=== PATIENT | female | born 1945 | race Two or more races ===

== ENCOUNTER 2019-09-27 06:03 | Day surgery (SDC) | payer OTHER ==
[2019-09-25 14:09] VITALS: BMI 34.2
[~2019-09-27 06:03] MED LIST: TOBRAMYCIN/DEXAMETHASONE OPHTH. OINTMENT 1 TUBE TP ONE
[2019-09-27] MEDS ORDERED: TROPICAMIDE 1% OPHTH SOLN 15 ML BOTTLE ONE (06:26)
[2019-09-27] MEDS: PHENYLEPHRINE 2.5% OPHTH SOLN 15 ML BOTTLE OP SCH ×3 (06:30→06:55)
[2019-09-27] MEDS: TROPICAMIDE 1% OPHTH SOLN 15 ML BOTTLE OP SCH ×3 (06:30→06:55)
[2019-09-27] MEDS: KETOROLAC TROMETHAMINE 0.5% EYE DROP 1 DROP DROPS OP SCH ×3 (06:30→06:50)
[2019-09-27] MEDS: CIPROFLOXACIN HCL 0.3% OPHTH 2.5ML BOTTLE OP SCH ×3 (06:30→06:50)
[2019-09-27] MEDS ORDERED: ACETAMINOPHEN 325 MG TABLET (FP) PO PRN (06:45)
[2019-09-27] MEDS ORDERED: CHONDROITIN SU A/HYALUR SOD 1 KIT ONE (07:11)
[2019-09-27] MEDS ORDERED: EPINEPHrine/PF 1 MG/1 ML (1:1,000) AMPULE ONE (07:12)
[2019-09-27] MEDS ORDERED: TOBRAMYCIN/DEXAMETHASONE OPHTH. OINTMENT 1 TUBE ONE (07:12)
[2019-09-27] MEDS ORDERED: LIDOCAINE HCL/PF 1% SDV 5ML VIAL ONE (07:13)
[2019-09-27] MEDS ORDERED: BUPIVACAINE HCL/PF 0.75% 10 ML VIAL ONE (07:13)
[2019-09-27] MEDS ORDERED: TETRACAINE 0.5% OPHTH SOLN 2 ML BOTTLE ONE (07:13)
[2019-09-27] MEDS ORDERED: LIDOCAINE HCL/PF 2% SDV 5ML VIAL ONE (07:13)
[2019-09-27] MEDS ORDERED: POVIDONE-IODINE 5% OPHTHALMIC PREP 30 ML SOLUTION ONE (07:14)
--- NOTE | 2019-09-27 07:19 | HP ---
- Patient Scheduled date of Surgery: 09/27/19 Scheduled Surgical Procedure: Phacoemulsification and cataract extraction with PCIOL Affected Eye: Left Chief Complaint (Indication for surgery): Decreased vision affecting ADLs - Ocular History Other Eye History: Other (eyelid nevus, PASQUALE) Eye Medications: vigamox, restasis , at Previous Eye Surgery: none - Medical History Illnesses: Hypertension, Hypercholesterolemia, Dementia (mild), Thyroid Disease Current Medications: Ambulatory Orders Citalopram Hydrobromide [Citalopram HBr] 10 mg PO DAILY 09/25/19 Metoprolol Succinate 25 mg PO DAILY 09/25/19 Fenofibrate Nanocrystallized [Fenofibrate] 160 mg PO DAILY 09/27/19 Levothyroxine [Synthroid -] 25 mcg PO DAILY 09/27/19 Lisinopril [Prinivil -] 40 mg PO DAILY 09/27/19 Memantine HCl/Donepezil HCl [Namzaric 28 mg-10 mg Capsule] 1 each PO DAILY 09/27 Quetiapine Fumarate [Seroquel -] 25 mg PO HS 09/27/19 Simvastatin 40 mg PO DAILY 09/27/19 Allergies/Adverse Reactions: Allergies Allergy/AdvReac Type Severity Reaction Status Date / Time No Known Allergies Allergy Verified 09/27/19 06:33 Ocular Examination - Best Corrected Visual Acuity Distance: Right eye: 20/60 glare Distance: Left eye: 20/40 - External/Slit Lamp Examination Abnormalities: decreased tbut, pingueculum - Intraocular Pressure Intraocular Pressure - Right eye: 14 Intraocular Pressure-Left eye: 14 - Lens Lens: 2+ NS - Vitreous/Retina Vitreous/Retina: c:d 0.15 m/v/p wnl - Special Examination M - Right eye: +1.50-0.50 x 105 M - Left eye: +2.25-0.75 x 075 K - Right eye: 43.5/44 x050 K - Left eye: 43.25/43.75 x 75 AL - Right eye: 23.60 AL - Left eye: 23.47 IOL ba.0 IOL sulcus: 20.0 IOL AC: 17.5 - Impression Impression: Cataract Left Eye - Plan Plan: Phacoemulsification and cataract extraction - IOL Left eye Post-hospital care will be provided in office on: 09/28/19
--- NOTE | 2019-09-27 07:20 | HP ---
History & Physical Update - History History: No Change - Physical Physical: No Change - Assessment Assessment: No Change - Plan Plan: No Change (H and p reviewed by Dr. Mclaughlin from 09/05/19 no changes)
[2019-09-27] MEDS ORDERED: PROPOFOL 20 ML ONE ×2 (07:29)
[2019-09-27] MEDS ORDERED: MIDAZOLAM HCL 2 MG/2 ML SINGLE DOSE VIAL ONE (07:29)
[2019-09-27] MEDS ORDERED: BUPIVACAINE HCL/PF 0.75% 10 ML VIAL NR ONE (07:51)
[2019-09-27] MEDS ORDERED: LIDOCAINE HCL/PF 2% SDV 5ML VIAL INF ONE ×2 (07:51)
[2019-09-27] MEDS ORDERED: TETRACAINE 0.5% OPHTH SOLN 2 ML BOTTLE TP ONE (07:52)
[2019-09-27] MEDS ORDERED: POVIDONE-IODINE 5% OPHTHALMIC PREP 30 ML SOLUTION OS ONE (07:54)
[2019-09-27] MEDS ORDERED: CHONDROITIN SU A/HYALUR SOD 1 KIT IO ONE (07:59)
[2019-09-27] MEDS ORDERED: BSS (NA/CA/MG/K) BALANCED SALT SOLUTION OPHTH SOLN 15 ML BOTTLE OS ONE (07:59)
[2019-09-27] MEDS ORDERED: EPINEPHrine/PF 1 MG/1 ML (1:1,000) AMPULE SQ ONE (08:13)
[2019-09-27] MEDS ORDERED: TOBRAMYCIN/DEXAMETHASONE OPHTH. OINTMENT 1 TUBE TP ONE (08:25)
--- NOTE | 2019-09-27 08:41 | OP ---
Ophthalmology Operative Note Pre-Operative Diagnosis: Cataract Affected Eye: Left Operation: Phacoemulsification and cataract extraction with PCIOL Findings: NS Cataract Post-Operative Diagnosis: Same as Pre-op Nurse Research: None Anesthesiologist: Sharron London Anesthesia: Retrobulbar Specimens Removed: none Estimated blood loss: < 1cc Drains & Tubes with Location: NS Operative Report Dictated: Yes
[2019-09-27 08:52] VITALS: PULSE 52
[2019-09-27 09:50] VITALS: BP 161/63; TEMP 97.5
--- NOTE | 2019-09-27 13:09 | OP ---
DATE OF OPERATION: DATE OF DICTATION: 09/27/2019 PREOPERATIVE DIAGNOSIS: Nuclear sclerotic cataract, left eye. POSTOPERATIVE DIAGNOSIS: Nuclear sclerotic cataract, left eye. PROCEDURE: Phacoemulsification and cataract extraction with insertion of posterior chamber intraocular lens, left eye. SURGEON: Jamila Robison MD EMPLOYMENT EDUCATIONAL COORD: None. ANESTHESIA: Retrobulbar block. ANESTHESIOLOGIST: TIMA Bergeron OPERATIVE PROCEDURE: Following satisfactory intravenous sedation, the patient received local anesthesia using a 50/50 mixture of lidocaine 2% and Marcaine 0.75%. A Van Lint lid block was delivered to the left eye using 3 mL of the mixture and a retrobulbar injection using 2 mL of the mixture. The patient was then prepped and draped in the usual sterile fashion so as to expose only the left eye. Ophthalmic Betadine was instilled into the inferior fornix. The lashes were taped out of the surgical field. An eyelid speculum was placed into the left eye. One drop of tetracaine was placed on the eye. A paracentesis was made in inferior clear cornea at the limbus. Viscoelastic material was instilled into the anterior chamber via the paracentesis. A 2.4-mm keratome was then used to create the main incision in temporal clear cornea at the limbus. A continuous curvilinear capsulorrhexis was performed using a cystotome and Utrata forceps. Hyrodissection of the lens cortex was performed using BSS on a cannula until the nucleus was noted to be freely rotating. The phacoemulsification tip was inserted via the main wound and used to sculpt 2 perpendicular grooves into the lens nucleus. The lens nucleus was cracked into 4 quadrants. Each quadrant was lifted out of the capsule into the iris plane and individually phacoemulsified. The remaining cortical material was then aspirated using the irrigation and aspiration port. The capsular bag was inflated using Provisc, and a preloaded Hoya lens model [id number], power +21.0 diopter was injected into the capsular bag and centered using a Sinskey hook. The residual viscoelastic material was removed from the anterior chamber using irrigation and aspiration. The wound edges were hydrated using BSS. The wound was tested for leakage. It was found to be watertight. Tobradex ointment was placed in the eye. The speculum was removed from the eye. The eyelid was closed. The sterile dressing and shield were placed over the eye. The patient was transferred to the recovery room in stable condition. Told to follow up in 1 day. JAMILA ROBISON M.D. [id number]
== END 2019-09-27 09:40 | disposition home or self-care (01) ==
LOC: JASU-SURG 06:03
PROVIDERS: ATTEND Ophthalmology
PROC: 08RK3JZ Replacement of Left Lens with Synthetic Substitute, Percutaneous Approach (ICD-10-PCS; principal; 2019-09-27 07:59)
DX: H25.12 Age-related nuclear cataract, left eye (principal)

== ENCOUNTER 2021-11-02 05:29 | Day surgery (SDC) | payer OTHER ==
[2021-10-30 09:09] VITALS: BMI 31.8
[2021-11-02] MEDS ORDERED: LIDOCAINE VISCOUS 2% ORAL/TOP 15 ML UNIT-DOSE CUP ONE (12:54)
[2021-11-02] MEDS ORDERED: LIDOCAINE VISCOUS 2% ORAL/TOP 15 ML UNIT-DOSE CUP MM ONE (13:20)
[2021-11-02 13:53] VITALS: TEMP 98.4
[2021-11-02 14:32] VITALS: BP 156/64; PULSE 53
== END 2021-11-02 14:37 | disposition home or self-care (01) ==
LOC: JASU-ENDO 05:29
PROVIDERS: ATTEND Internal Medicine Cardiovascular Disease
PROC: B246ZZ4 Ultrasonography of Right and Left Heart, Transesophageal (ICD-10-PCS; principal; 2021-11-02 13:00)
DX: I63.9 Cerebral infarction, unspecified (principal)
CPT/HCPCS: 93312; 93325

== ENCOUNTER 2021-11-06 09:35 | Emergency (ER) | payer OTHER ==
[2021-11-06 09:47] VITALS: BMI 31.2
[2021-11-06 13:01] LABS: BASO % 0.7 % (0-2.0); EOS % 2.8 % (0-4.5); HEMATOCRIT 39.9 % (32.4-45.2); HEMOGLOBIN 13.3 GM/dL (10.7-15.3); LYMPH % 40.6 % (8-40); MCH 28.1 pg (25.7-33.7); MCHC 33.4 g/dl (32.0-36.0); MEAN PLT VOLUME 8.6 fl (7.5-11.1); NEUT % 49.9 % (42.8-82.8); PLATELET COUNT 248 10^3/uL (134-434); RBC 4.76 M/mm3 (3.60-5.2); RDW 15.3 % (11.6-15.6); WHITE BLOOD COUNT 5.9 K/mm3 (4.0-10.0)
[2021-11-06 13:08] LABS: INR 1.01 (0.83-1.09); PROTHROMBIN TIME (PATIENT) 11.3 SEC (9.7-13.0)
[2021-11-06 13:10] LABS: ACTIVATED PTT 32.1 SECONDS (25.2-36.5)
[2021-11-06 13:45] LABS: CHLORIDE 108 mmol/L (98-107); SODIUM 132 mmol/L (136-145)
[2021-11-06 13:48] LABS: CO2 27 mmol/L (21-32)
[2021-11-06 13:49] LABS: ALBUMIN 3.5 g/dl (3.4-5.0); GLUCOSE,RANDOM 93 mg/dL (74-106)
[2021-11-06 13:52] LABS: CHOLESTEROL 125 mg/dL (50-200); LDL CHOLESTEROL (ONLY SJRH) 57 mg/dL (5-100); TOT PROT 9.1 g/dl (6.4-8.2)
[2021-11-06 13:53] LABS: TRIGLYCERIDES 141 mg/dL (0-150)
[2021-11-06 13:55] LABS: HDL CHOLESTEROL 70 mg/dL (40-60)
[2021-11-06 13:59] LABS: ALK PHOS 35 U/L (45-117)
[2021-11-06 14:25] VITALS: TEMP 98
[2021-11-06 14:41] LABS: ANION GAP -3 MMOL/L (8-16); BILIRUBIN,TOTAL 0.4 mg/dL (0.2-1); CALCIUM 9.6 mg/dL (8.5-10.1); SGOT/AST 24 U/L (15-37); SGPT/ALT 25 U/L (13-61)
[2021-11-07 02:06] VITALS: BP 150/66; PULSE 63
== END 2021-11-07 02:06 | disposition short-term general hospital (02) ==
LOC: JER 09:35
DX: I63.9 Cerebral infarction, unspecified (principal)
CPT/HCPCS: 36415; 70450-TC; 70551-TC; 72125-TC; 80053; 80061; 82550; 82962; 83036; 84484; 85025; 85610; 85730; 86900; 93005; 93010; 99285-25; C9803; U0003; U0005